=== PATIENT | male | born 1985 ===

== ENCOUNTER → 2020-07-19 | Outpatient (CLI) | payer OTHER ==
[~2020-07-19] MED LIST: IBUP-1902 PO
== END | disposition home or self-care (01) ==
LOC: STAR 15:06
PROVIDERS: ATTEND Orthopaedic Surgery
DX: Z20.822 Contact with and (suspected) exposure to COVID-19 (principal); M25.511 Pain in right shoulder
CPT/HCPCS: U0003; U0005

== ENCOUNTER 2020-07-25 14:52 | Day surgery (SDC) | payer OTHER ==
[~2020-07-25] VITALS: Ht 167.6 cm; Wt 78.5 kg
[2020-07-25] MEDS ORDERED: FENTANYL PF 100 MCG/2ML ONE (14:58)
[2020-07-25] MEDS ORDERED: MIDAZOLAM 1 MG/ML, 2ML ONE (14:58)
[2020-07-25] MEDS ORDERED: ACET-1600 PO (15:25)
[2020-07-25] MEDS ORDERED: CHLORHEXIDINE 15 ML UDC ONE (15:28)
[2020-07-25] MEDS ORDERED: LIDOCAINE-MPF 1%, 2ML ONE (15:28)
[2020-07-25] MEDS ORDERED: LIDOCAINE-MPF 1%, 2ML INFIL ONE (15:30)
[2020-07-25] MEDS ORDERED: FENTANYL PF 100 MCG/2ML IV PRN (15:30)
[2020-07-25] MEDS ORDERED: MEPERIDINE/PF 25MG/0.5ML IVPush PRN (15:30)
[2020-07-25] MEDS ORDERED: HYDROmorphone 1 MG/ML, 1ML INJ IVPush PRN (15:30)
[2020-07-25] MEDS ORDERED: ACETAMINOPHEN 325 MG TABLET PO PRN (15:30)
[2020-07-25] MEDS ORDERED: OXYcodone 5 MG/5 ML ORAL.SOL UDC PO PRN (15:30)
[2020-07-25] MEDS ORDERED: LABETALOL 5MG/ML, 20ML IV PRN (15:30)
[2020-07-25] MEDS ORDERED: CHLORHEXIDINE 15 ML UDC PO ONE (15:30)
[2020-07-25] MEDS ORDERED: LACTATED RINGERS 1,000 ML IV SCH (15:30)
[2020-07-25] MEDS ORDERED: MIDAZOLAM 1 MG/ML, 2ML IV PRN (15:30)
[2020-07-25] MEDS ORDERED: PROMETHAZINE 25 MG/ML, 1ML IVPush PRN (15:30)
[2020-07-25] MEDS ORDERED: PROPOFOL 50 ML ONE (16:15)
[2020-07-25] MEDS ORDERED: LIDOCAINE-MPF 2% ,5ML ONE (17:12)
[2020-07-25] MEDS ORDERED: PROPOFOL 10 MG/ML, 20ML ONE (17:12)
[2020-07-25] MEDS ORDERED: ONDANSETRON 2MG/ML, 2ML ONE (17:12)
[2020-07-25] MEDS ORDERED: BUPIVACAINE/PF 0.5% ONE (17:12)
[2020-07-25] MEDS ORDERED: DEXAMETHASONE 4 MG/ML, 1ML ONE (17:12)
[2020-07-25] MEDS ORDERED: CEFAZOLIN 1,000 MG ONE (17:12)
[2020-07-25] MEDS ORDERED: MEPERIDINE/PF 50 MG/ML ONE (17:25)
== END 2020-07-25 20:10 | disposition home or self-care (01) ==
LOC: OR 14:52
PROVIDERS: ATTEND Orthopaedic Surgery
DX: M25.531 Pain in right wrist (principal); M13.831 Other specified arthritis, right wrist; M25.511 Pain in right shoulder; F12.90 Cannabis use, unspecified, uncomplicated; Z72.89 Other problems related to lifestyle; Z79.899 Other long term (current) drug therapy
CPT/HCPCS: 25230; 25825; 64415; 73110; C1713; C1762; J0690; J1100; J2175; J2250; J2405; J2704; J3010; J7120; 76000